=== PATIENT | female | born 1960 | race Caucasian/White ===

== ENCOUNTER 2021-01-14 06:29 | Emergency (ER) | payer OTHER, SELFPAY ==
--- NOTE | ~2021-01-14 | CT_ITS ---
EXAMINATION: CT abdomen pelvis wo con DATE: 01/14/2021 07:37 INDICATION: Right flank pain. Nausea. TECHNIQUE: Computed tomography (CT) of the abdomen and pelvis was performed without intravenous contr ast. Automated exposure control and iterative reconstruction technique were employed. The dose-length product was 184.29 mGy-cm. COMPARISON: CT abdomen and pelvis 07/04/2017 FINDINGS: The visualized portions of the lung bases demonstrate mild atelectasis. No pleural effusion . The heart size is normal. No pericardial effusion. There are cysts in the liver measuring up to 2.4 cm. There are changes of cholecystectomy. The pancreas, spleen, and adrenal glands are normal. There are cysts in the kidneys measuring up to 2.0 cm on the right. There is a 3 mm stone in right kidney. There is mild right hydronephrosis and hydroureter. There is a 3 mm stone at right ureterovesicular junction. There are two 2 mm stones in left kidney. There are no dilated loops of bowel. The appendix is not visualized. There are no pathologically enlarged lymph nodes. There is no free intraperitonea l fluid. There is mild thoracolumbar spondylosis. IMPRESSION: 1. 3 mm stone at right ureterovesicular junction with mild right hydronephrosis and hydroureter. 2. Small bilateral nonobstructing kidney stones. Reviewed, dictated and finalized at location A.
[2021-01-14 06:32] VITALS: BP 148/99; PULSE 100; RESP 18; TEMP 36.4; O2SAT 95
[2021-01-14] MEDS: KETOROLAC 30 MG/ML VIAL (*BKC) IV PUSH (06:44)
[2021-01-14] MEDS: SODIUM CHLORIDE 0.9% IV 1,000 ML 999 ML IV CONT (06:44)
[2021-01-14] MEDS: ONDANSETRON INJ 4 MG/2 ML VIAL IV PUSH (06:44)
[2021-01-14 06:58] LABS: Basophils Percent Auto 0.3 % (0.2-1.2); Eosinophils Absolute Auto 0.1 K/mm3 (0-0.3); Eosinophils Percent Auto 0.9 % (0-4.4); Hematocrit 46.7 % (37.0-47.0); Hemoglobin 15.2 g/dL (12.0-15.0); Immature Granulocyte Absolute 0.03 K/mm3 (0.00-0.031); Immature Granulocyte Percent A 0.4 % (0-0.5); Lymphocytes Absolute Auto 1.13 K/mm3 (0.9-3.2); Lymphocytes Percent Auto 14.2 % (18.3-44.2); Mean Corpuscular HGB Conc 32.5 g/dl (32-36); Mean Corpuscular Hemoglobin 30.6 pg (26-34); Mean Corpuscular Volume 94.2 fl (80-100); Mean Platelet Volume 10.5 fl (7.4-10.4); Monocytes Absolute Auto 0.7 K/mm3 (0.1-0.6); Monocytes Percent Auto 8.9 % (2.6-8.5); Neutrophils Percent Auto 75.3 % (45.5-73.1); Platelet Count Result 173 k/mm3 (150-375); Red Blood Count 4.96 M/mm3 (4.2-5.4); Red Cell Distribution Width 11.9 % (11.5-14.5)
[2021-01-14 07:08] LABS: Alanine Aminotransferase 27 U/L (4-35); Albumin Level 4.5 g/dL (3.5-5.1); Alkaline Phosphatase 74 U/L (38-126); Anion Gap 9 mmol/L (8-16); Aspartate Amino Transferase 40 U/L (14-36); Blood Urea Nitrogen 14 mg/dL (7-17); Calcium 9.2 mg/dL (8.4-10.2); Carbon Dioxide 26 mmol/L (22-30); Chloride 105 mmol/L (98-107); Estimated Glomerular Filt Rate > 60; Glucose 145 mg/dL (65-105); Potassium 3.8 mmol/L (3.4-5.0); Sodium 140 mmol/L (137-145)
[2021-01-14 07:13] LABS: Add Urine Microscopic? YES; Appearance Urine Clear (Clear); Bilirubin Urine Negative (Negative); Blood Urine 3+ (Negative); Color Urine Amber (Yellow); Glucose Urine UA Negative (Negative); Ketones Urine Trace mg/dL (Negative); Leukocyte Esterase Ur Negative LEU/UL (Negative); Mucus Urine Few /lpf; Nitrate Urine Negative (Negative); Protein Urine 1+ mg/dL (Negative); RBC Urine >75 /hpf (0-2); Squamous Epithelial Cell Urine Rare /hpf (Few); WBC Urine 0-3 /hpf
--- NOTE | 2021-01-14 07:25 | ED.FEMALEGU ---
HPI - Female Genitourinary General Chief complaint: Urogenital-Female Stated complaint: kidney stone Time Seen by Provider: 01/14/21 06:43 History of Present Illness HPI Narrative: Patient is a 60-year-old female who presents ER with concerns for kidney stone. Patient has history of kidney stones in the past. Began having some right flank pain 3 weeks ago. Then over the last few days she began having right lower quadrant pain. She now feels like she has to urinate frequently but cannot urinate. Reports yesterday she had diarrhea with nausea and vomiting. No alleviating factors at home. Related Data Allergies Allergy/AdvReac Type Severity Reaction Status Date / Time adhesive Allergy Unknown RASH, SKIN Verified 07/04/17 03:32 IRRITATION erythromycin base Allergy Unknown N/V Verified 07/04/17 03:32 STOMACH ULCERS Review of Systems Review of Systems: All systems reviewed & are unremarkable except as noted in HPI and below Constitutional: Constitutional: Denies chills Gastrointestinal: Gastrointestinal: Reports abdominal pain, Reports diarrhea, Reports nausea and Reports vomiting Genitourinary: Genitourinary: Reports nocturia, Denies dysuria and Reports flank pain PMFSH Past Medical History Medical History (Updated 01/14/21 @ 08:28 by Maco Layne MD) Anxiety Asthma Depression GERD (gastroesophageal reflux disease) Kidney stones Migraines Surgical History Surgical History (Updated 01/14/21 @ 07:33 by Maco Layne MD) History of appendectomy History of cholecystectomy Social History Social History (Updated 01/14/21 @ 07:33 by Maco Layne MD) Smoking status: Never smoker Exam Narrative: Exam Narrative: GENERAL: Well-appearing, well-nourished, and in no acute distress. HEAD: Normocephalic, atraumatic. CHEST: Clear to auscultation. No respiratory distress. HEART: Regular rate and rhythm. Normal peripheral pulses. ABDOMEN: Soft, nontender, nondistended. EXTREMITIES: Normal range of motion. No edema. NEURO: Alert and oriented x3. PSYCH: Normal mood and affect. Course Course Emergency Course: Patient improved. Informed results. Discharge home. Vital Signs Vital signs: Vital Signs Temperature 97.6 F 01/14/21 06:32 Pulse Rate 100 01/14/21 06:32 Respiratory Rate 18 01/14/21 06:32 Blood Pressure 148/99 H 01/14/21 06:32 Pulse Oximetry 95 01/14/21 06:32 Temperature 97.6 F 01/14/21 06:32 Pulse Rate 100 01/14/21 06:32 Respiratory Rate 18 01/14/21 06:32 Blood Pressure 148/99 H 01/14/21 06:32 Pulse Oximetry 95 01/14/21 06:32 MDM - Female Genitourinary Lab Data Result diagrams: 01/14/21 06:47 01/14/21 06:47 Labs: Lab Results 01/14/21 01/14/21 01/14/21 Range/Units 06:47 06:47 06:47 WBC 8.0 (4.5-10.0) K/mm3 RBC 4.96 (4.2-5.4) M/mm3 Hgb 15.2 H (12.0-15.0) g/dL Hct 46.7 (37.0-47.0) % MCV 94.2 (80-100) fl MCH 30.6 (26-34) pg MCHC 32.5 (32-36) g/dl RDW 11.9 (11.5-14.5) % Plt Count 173 (150-375) k/mm3 MPV 10.5 H (7.4-10.4) fl Immature Gran % (Auto) 0.4 (0-0.5) % Neut % (Auto) 75.3 H (45.5-73.1) % Lymph % (Auto) 14.2 L (18.3-44.2) % [place] % (Auto) 8.9 H (2.6-8.5) % Eos % (Auto) 0.9 (0-4.4) % Baso % (Auto) 0.3 (0.2-1.2) % Lymph # (Auto) 1.13 (0.9-3.2) K/mm3 [place] # (Auto) 0.7 H (0.1-0.6) K/mm3 Eos # (Auto) 0.1 (0-0.3) K/mm3 Baso # (Auto) 0.0 (0.0-0.1) K/mm3 Abs Immat Gran (auto) 0.03 (0.00-0.031) K/mm3 Absolute Neuts (auto) 6.0 (1.3-6.7) K/mm3 Absolute Nucleated RBC 0.0 (0.0-0.012) K/mm3 Nucleated RBC % 0.0 (0.0-0.2) % Sodium 140 (137-145) mmol/L Potassium 3.8 (3.4-5.0) mmol/L Chloride 105 (98-107) mmol/L Carbon Dioxide 26 (22-30) mmol/L Anion Gap 9 (8-16) mmol/L BUN 14 (7-17) mg/dL Creatinine 0.80 (0.7-1.0) mg/dL Estim Creat Clear Calc Not R
[2021-01-14 08:40] VITALS: BP 124/79; PULSE 84; RESP 16; O2SAT 96
== END 2021-01-14 08:41 | disposition home or self-care (01) ==
PROVIDERS: Emergency Medicine; Emergency Provider Emergency Medicine
DX: N20.1 Calculus of ureter (principal)
CPT/HCPCS: 36415; 74176; 80053; 81001; 81025; 85025; 96361; 96374; 96375; 99284; J1885; J2405; J7030

== ENCOUNTER 2022-09-11 09:55 | Observation (INO) | payer OTHER, SELFPAY ==
[2022-09-11] VITALS (20 sets, daily range): BP systolic 100–128; BP diastolic 58–99; PULSE 84–130; RESP 14–21; TEMP 36.6–38; O2SAT 93–100; BMI 24.2
--- NOTE | ~2022-09-11 | CT_ITS ---
Non-contrast CT scan of the Abdomen and Pelvis Clinical indication: Urolithiasis Technique: 2.5 mm axial scans were obtained through the abdomen and pelvis without intravenous or or al contrast. Dose reduction technique was used on this scan by utilizing automated exposure control a nd iterative reconstruction technique. The dose-length product (DLP) was 180.30 mGy-cm. Findings: Images through the lung bases reveal no abnormalities. Punctate bilateral nonobstructing renal stones are present. No ureteral stone seen at this time, hobbs kriss there is suggestion of mild fullness of the left ureter. Cholecystectomy clips are present. Multiple hepatic cysts are present. The spleen, pancreas, and adre nals appear normal. There is no aortic aneurysm. There is no evidence of bowel obstruction. Images through the pelvis were performed. There is no evidence of ascites or lymphadenopathy. Urinary bladder unremarkable. No adnexal mass seen. Impression: Findings suggestive of recently passed left ureteral stone. No ureteral stone seen currently. Small bilateral nonobstructing renal stones. Reviewed, dictated and finalized at location . FINISHER Impression: Findings suggestive of recently passed left ureteral stone. No ureteral stone s een currently. Small bilateral nonobstructing renal stones.
[2022-09-11 10:25] LABS: Basophils Percent Auto 0.2 % (0.2-1.2); Hematocrit 41.3 % (37.0-47.0); Hemoglobin 13.5 g/dL (12.0-15.0); Immature Granulocyte Absolute 0.04 K/mm3 (0.00-0.031); Immature Granulocyte Percent A 0.3 % (0-0.5); Lymphocytes Absolute Auto 0.71 K/mm3 (0.9-3.2); Lymphocytes Percent Auto 5.4 % (18.3-44.2); Mean Corpuscular HGB Conc 32.7 g/dl (32-36); Mean Corpuscular Hemoglobin 31.3 pg (26-34); Mean Corpuscular Volume 95.6 fl (80-100); Mean Platelet Volume 10.7 fl (7.4-10.4); Monocytes Absolute Auto 0.7 K/mm3 (0.1-0.6); Monocytes Percent Auto 5.2 % (2.6-8.5); Neutrophils Absolute Auto 11.6 K/mm3 (1.3-6.7); Neutrophils Percent Auto 88.9 % (45.5-73.1); Platelet Count Result 180 k/mm3 (150-375); Red Blood Count 4.32 M/mm3 (4.2-5.4); Red Cell Distribution Width 12.7 % (11.5-14.5); White Blood Count 13.1 K/mm3 (4.5-10.0)
[2022-09-11 10:31] LABS: Alanine Aminotransferase 24 U/L (6-35); Albumin Level 4.3 g/dL (3.5-5.1); Alkaline Phosphatase 83 U/L (38-126); Anion Gap 5 mmol/L (8-16); Aspartate Amino Transferase 26 U/L (14-36); Bilirubin,Total 0.9 mg/dL (0.2-1.3); Blood Urea Nitrogen 11 mg/dL (7-17); Calcium 9.6 mg/dL (8.4-10.2); Carbon Dioxide 30 mmol/L (22-30); Chloride 100 mmol/L (98-107); Estimated CRCL calculation 72 ml/min; Estimated Glomerular Filt Rate > 60; Glucose 158 mg/dL (65-110); Potassium 3.7 mmol/L (3.4-5.0); Sodium 135 mmol/L (137-145)
[2022-09-11] MEDS: ONDANSETRON INJ 4 MG/2 ML VIAL IV PUSH (10:31)
[2022-09-11] MEDS: fentaNYL CITRATE INJ (*CRX) 100 MCG/2 ML VIAL 50 MCG IV PUSH (10:31)
--- NOTE | 2022-09-11 11:04 | ED.GENADULT ---
HPI - General Adult General Chief complaint: Urogenital-Female Stated complaint: kidney stone? Time Seen by Provider: 09/11/22 10:13 History of Present Illness HPI narrative: This is a 62-year-old female who comes to the ED with chief complaint of left flank pain x3 days. She has had multiple kidney stones in the past and felt like she was having the same thing. She does state that she is starting to have right flank pain here in the ED as well. She had leftover tamsulosin and took that last night and feels that she may have passed her stone last night. Still complains of 9 out of 10 pain here in the ED. Reports that the pain on the left side does radiate into the groin. Pain on the right stays in the right flank. Denies chills but endorses subjective fevers and sweats. Denies nausea, vomiting. Related Data Home Medications Medication Instructions Recorded Confirmed diphenhydramine HCl 25 mg capsule 25 mg PO HS PRN Insomnia 09/11/22 09/11/22 (Benadryl) melatonin 10 mg disintegrating 10 mg PO HS PRN Insomnia 09/11/22 09/11/22 tablet Allergies Allergy/AdvReac Type Severity Reaction Status Date / Time adhesive Allergy Unknown RASH, SKIN Verified 07/04/17 03:32 IRRITATION erythromycin base Allergy Unknown N/V Verified 07/04/17 03:32 STOMACH ULCERS Review of Systems Review of Systems: CONSTITUTIONAL: Endorses subjective fever and sweats. Denies chills EYES: Denies visual changes, redness, or discharge. ENT: Denies rhinorrhea, congestion, sore throat, or otalgia. CARDIOVASCULAR: Denies chest pain, palpitations, or edema. RESPIRATORY: Denies cough or dyspnea. GASTROINTESTINAL: Endorses bilateral flank pain. Denies abdominal pain, nausea, vomiting, or diarrhea. GENITOURINARY: Endorses frequency. Endorses hematuria. Denies dysuria. SKIN: Denies rash or itching. MUSCULOSKELETAL: Denies back pain, joint pain, or myalgia. NEUROLOGIC: Denies headache, numbness, dizziness, or weakness. PSYCHIATRIC: Denies anxiety or depression. [facility] Past Medical History Medical History (Updated 09/11/22 @ 16:08 by Edgar Leavitt PA-C) Anxiety Asthma Depression GERD (gastroesophageal reflux disease) Kidney stones Migraines Surgical History Surgical History (Updated 01/14/21 @ 07:33 by Maco Layne MD) History of appendectomy History of cholecystectomy Social History Social History (Updated 01/14/21 @ 07:33 by Maco Layne MD) Smoking status: Never smoker Alcohol intake: former Substance use: never Lack of Transportation: No Lack of Food: Never True Current Housing: I Have Housing Concerned About Future Housing: No Difficulty Paying Gas/Electric Bills: No Difficulty Paying for Meds: No Currently Unemployed: No Education: Decline to Answer Difficulty w/ Childcare or Family Care: No Spiritual care concerns: No Exam Narrative: GENERAL: Well-appearing, well-nourished, and in no acute distress. Appears in pain. HEAD: Normocephalic, atraumatic. EYES: PERRLA and EOMI. ENT: Nares clear, no rhinorrhea or epistaxis. Mucous membranes moist. Oropharynx without tonsillar hypertrophy exudate or other lesions. NECK: Supple. No adenopathy or masses. CHEST: No respiratory distress. Clear to auscultation. No wheezes rales or rhonchi HEART: Regular rate and rhythm. No murmur heard. Normal peripheral pulses. ABDOMEN: Markedly tender in the left flank and moderately tender on the right flank. Abdomen is otherwise soft, nontender, nondistended, normal active bowel sounds. EXTREMITIES: Normal range of motion. No edema. SKIN: Skin is very warm and slightly diaphoretic. Otherwise intact, dry, no rash. No bruising. NEURO: Alert and oriented x3. No focal deficits. PSYCH: Normal mood and affect. Course Vital Signs Vital signs: Vital Signs Temperature 99.6 F 09/11/22 10:00 Pulse Rate 130 H 09/11/22 10:00 Respiratory Rate 20 09/11/22 10:00 Blood Pressure 114/99 H
[2022-09-11 11:18] LABS: Appearance Urine Turbid (Clear); Bacteria Urine 4+ /hpf; Bilirubin Urine Negative (Negative); Blood Urine 3+ (Negative); Color Urine Dark Yellow (Yellow); Glucose Urine UA Negative (Negative); Ketones Urine Trace mg/dL (Negative); Leukocyte Esterase Ur 3+ LEU/UL (Negative); Need Manual Microscopic Reviewed; Nitrate Urine Positive (Negative); Protein Urine 2+ mg/dL (Negative); Specific Grav Ur 1.019 (1.001-1.035); Squamous Epithelial Cell Urine Few /hpf (Few); pH Urine 5.5 (5.0-9.0)
[2022-09-11 11:21] LABS: Add Urine Microscopic? YES
[2022-09-11 11:27] LABS: WBC Urine >75 /hpf
[2022-09-11 11:52] LABS: Lipase 44 U/L (23-300)
[2022-09-11] MEDS: SODIUM CHLORIDE 0.9% IV 1,000 ML 999 ML IV CONT (12:46)
[2022-09-11 13:04] LABS: Lactic Acid Reflex 0.9 mmol/L (0.7-2.0)
--- NOTE | 2022-09-11 13:55 | ADMGEN ---
This patient, Rosa Maria Hughes, was admitted to [address] [place] [address] Room 330-02. Patient/family oriented to hospital policies and general routines including ID bracelet, bed and alarms, visiting hours, pain management, procedures, bathroom and other care routines, personal items, smoking policy, room service/diet, and visiting hours. Information on how to activate the Rapid Response Team has been discussed. Patient/Family are encouraged to report perceived risks to care and to ask questions if they do not understand what they are told or what they should do.
[2022-09-11] MEDS: SODIUM CHLORIDE 0.9% IV 1,000 ML 125 ML IV CONT (14:51)
--- NOTE | 2022-09-11 17:30 | PM.IMHP ---
H&P: HPI History of Present Illness Date/Time: 09/11/22 17:30 Chief Complaint: Flank pain. Narrative: This is a 62-year-old female with history of kidney stones who presented to the emergency department for evaluation of flank pain. Patient provides the following history. She reports left flank pain for the past 3 days similar to that which she has experienced with previous kidney stones. The pain is at times so severe that she has nausea and vomiting. Last evening she took tamsulosin which she had at home and she believes that she passed a stone sometime last night. Unfortunately she continues to have flank pain rated 9/10 which is colicky in nature and seems to radiate into the groin. She also endorses mild right-sided flank pain. She has had some sweats but no fever or chills. She continues to have some nausea but no vomiting. No diarrhea, dysuria, or hematuria. She was afebrile on arrival to the emergency department with stable vital signs. Pertinent labs include a WBC count of 13.1, sodium 135, BUN 11, creatinine 0.60, lactic acid 0.9, lipase 44, normal LFTs. Urine was nitrate positive and showed 3+ blood, 3+ leukocyte esterase, 11 to 20 RBC, greater than [address] scan showed punctate bilateral nonobstructing renal stones and findings suggestive of recently passed left ureteral stone. Due to ongoing pain and evidence of urinary tract infection, I was asked to admit the patient in this setting for IV antibiotics. Review of Systems Review of Systems: Twelve systems were reviewed and are negative except for as per HPI. [facility] Past Medical History Medical History (Updated 09/11/22 @ 22:50 by Petty Fofana PA-C) Anxiety Asthma Depression Essential tremor Gastroesophageal reflux disease Kidney stones Migraines Osteoporosis Surgical History Surgical History (Updated 09/11/22 @ 16:47 by Petty Fofana PA-C) History of appendectomy History of arthroscopy of right shoulder History of cholecystectomy History of dilation and curettage Family History Family History Mother Hypertension Diabetes mellitus Father Valvular insufficiency Social History Social History (Updated 09/11/22 @ 17:06 by Petty Fofana PA-C) Social History: Surrogate medical decision maker: Rhiannon Carter, daughter. Code status: Full code. Smoking status: Never smoker Alcohol intake: former Substance use: never Lack of Transportation: No Lack of Food: Never True Current Housing: I Have Housing Concerned About Future Housing: No Difficulty Paying Gas/Electric Bills: No Difficulty Paying for Meds: No Currently Unemployed: No Education: Decline to Answer Difficulty w/ Childcare or Family Care: No Spiritual care concerns: No Meds Home Medications and Allergies Home Medications Medication Instructions Recorded Confirmed Type diphenhydramine HCl 25 mg capsule 25 mg PO HS PRN Insomnia 09/11/22 09/11/22 History (Benadryl) melatonin 10 mg disintegrating 10 mg PO HS PRN Insomnia 09/11/22 09/11/22 History tablet Allergies Allergy/AdvReac Type Severity Reaction Status Date / Time adhesive Allergy Unknown RASH, SKIN Verified 07/04/17 03:32 IRRITATION erythromycin base Allergy Unknown N/V Verified 07/04/17 03:32 STOMACH ULCERS Vital Signs Vital Signs - 24 hr 09/11/22 10:00 09/11/22 10:30 09/11/22 10:31 Temperature 99.6 F Pulse Rate 130 H 116 H 116 H Respiratory Rate 20 16 17 Blood Pressure 114/99 H 100/79 Pulse Oximetry 98 98 98 Oxygen Delivery Room Air 09/11/22 10:45 09/11/22 11:11 09/11/22 11:26 Temperature Pulse Rate 103 H 100 94 Respiratory Rate 15 21 H 20 Blood Pressure Pulse Oximetry 93 95 95 Oxygen Delivery 09/11/22 11:34 09/11/22 11:47 09/11/22 12:08 Temperature Pulse Rate 93 93 88 Respiratory Rate 20 17 16 Blood Pressure Pulse Oximetry 97 98 97 Oxygen De
[2022-09-11] MEDS: HYDROcodone/acetaminophen (*CRX) 5-325 MG TABLET 1 TAB PO (20:49)
[2022-09-11] MEDS: ACETAMINOPHEN 325 MG TABLET 650 MG PO (22:04)
[2022-09-12 06:00] VITALS: BP 106/47; PULSE 79; RESP 16; TEMP 36.5; O2SAT 100
[2022-09-12 06:31] VITALS: TEMP 36.3
[2022-09-12 06:31] LABS: Anion Gap 3 mmol/L (8-16); Blood Urea Nitrogen 10 mg/dL (7-17); Calcium 8.5 mg/dL (8.4-10.2); Carbon Dioxide 27 mmol/L (22-30); Chloride 104 mmol/L (98-107); Estimated CRCL calculation 72 ml/min; Estimated Glomerular Filt Rate > 60; Glucose 115 mg/dL (65-110); Magnesium 1.8 mg/dL (1.6-2.3); Potassium 3.4 mmol/L (3.4-5.0); Sodium 134 mmol/L (137-145)
[2022-09-12 06:36] LABS: Hematocrit 36.8 % (37.0-47.0); Mean Corpuscular HGB Conc 32.6 g/dl (32-36); Mean Corpuscular Hemoglobin 30.8 pg (26-34); Mean Corpuscular Volume 94.6 fl (80-100); Mean Platelet Volume 10.4 fl (7.4-10.4); Platelet Count Result 152 k/mm3 (150-375); Red Blood Count 3.89 M/mm3 (4.2-5.4); Red Cell Distribution Width 12.9 % (11.5-14.5); White Blood Count 8.8 K/mm3 (4.5-10.0)
[2022-09-12] MEDS: ACETAMINOPHEN 325 MG TABLET 650 MG PO ×2 (08:24→21:09)
--- NOTE | 2022-09-12 11:14 | PM.IMPN ---
Progress Note: A&P Assessment and Plan (1) Pyelonephritis of left kidney: Code(s): N12 - Tubulo-interstitial nephritis, not specified as acute or chronic Status: Acute (2) Urinary tract infection: Code(s): N39.0 - Urinary tract infection, site not specified Status: Acute (3) Flank pain: Code(s): R10.9 - Unspecified abdominal pain Status: Acute (4) Bilateral renal stones: Code(s): N20.0 - Calculus of kidney Status: Acute Plan The patient presented to the emergency department for evaluation of bilateral flank pain similar to that which she has experienced with previous kidney stones. Labs, imaging, and all reports were personally reviewed. She thinks she may very well have passed a stone last night and CT of the abdomen and pelvis shows findings suggestive of recently passed left ureteral stone. Bilateral, nonobstructing renal stones were also noted but is unlikely that these are causing her current pain. More over she has left-sided CVA tenderness and she likely has pyelonephritis. If she continues to have pain, renal ultrasound or repeat CT may be prudent to rule out hydronephrosis. Urinalysis demonstrated 3+ blood, 3+ leukocyte esterase, 4+ bacteria, and was nitrate positive. She has since been started on ceftriaxone, pending urine culture. Blood cultures have been obtained and are pending. Vital signs were reviewed and they have remained stable. Her home medications will be reviewed and resumed as appropriate. Subjective Date/time seen: 09/12/22 11:14 No complaints Exam Narrative: General: Mildly ill, nontoxic-appearing female in the semi-Sales position in bed. Weight: 63.96 kg. BMI: 24.2. HEENT: PERRL, EOMI. Sclera anicteric. Tacky mucous membranes. Neck: Supple. Respiratory: Lungs are clear to auscultation bilaterally. Cardiovascular: Regular rate and rhythm with S1-S2. Gastrointestinal: Abdomen is soft and nondistended with positive bowel sounds. Positive left-sided CVA tenderness. She has some tenderness to palpation throughout the lower abdomen as well. No guarding or rebound tenderness. Skin: Warm and dry. No rash or lesions on limited exam. Extremities: No cyanosis, clubbing, or edema. Radial and pedal pulses intact. Neurological: Alert. Cranial nerves 2-12 are grossly intact. No gross focal deficits to casual conversation. Psychiatric: Pleasant and cooperative with normal mood and affect. Judgment and insight intact. Objective Data Vital Signs Vital Signs: Vital Signs - 24 hr 09/11/22 11:26 09/11/22 11:34 09/11/22 11:47 Temperature Pulse Rate 94 93 93 Respiratory Rate 20 20 17 Blood Pressure Pulse Oximetry 95 97 98 Oxygen Delivery 09/11/22 12:08 09/11/22 12:19 09/11/22 12:49 Temperature Pulse Rate 88 90 89 Respiratory Rate 16 14 14 Blood Pressure Pulse Oximetry 97 97 Oxygen Delivery 09/11/22 12:55 09/11/22 13:03 09/11/22 13:15 Temperature Pulse Rate 86 90 91 Respiratory Rate 18 17 19 Blood Pressure 121/67 Pulse Oximetry 100 99 Oxygen Delivery 09/11/22 13:45 09/11/22 13:30 09/11/22 15:18 Temperature 98.1 F 97.9 F Pulse Rate 93 84 86 Respiratory Rate 15 14 21 H Blood Pressure 124/77 112/59 L Pulse Oximetry 100 99 100 Oxygen Delivery 09/11/22 15:38 09/11/22 22:04 09/11/22 22:00 Temperature 99.8 F H 100.4 F H Pulse Rate 86 110 H Respiratory Rate 21 H 18 Blood Pressure 128/58 L Pulse Oximetry 100 95 Oxygen Delivery Room Air 09/11/22 20:00 09/12/22 06:31 09/12/22 06:00 Temperature 97.4 F L 97.7 F Pulse Rate 79 Respiratory Rate 16 Blood Pressure 106/47 L Pulse Oximetry 100 Oxygen Delivery Room Air 09/12/22 08:00 Temperature Pulse Rate Respiratory Rate Blood Pressure Pulse Oximetry Oxygen Delivery Room Air Intake/Output Intake/Output: Intake & Output 09/09/22 09/10/22 09/11/22 09/12/22 23:59 23:59 23:59 23:59 Intake Total 1170 375 [place]
[2022-09-12 14:00] VITALS: BP 110/58; PULSE 89; RESP 16; TEMP 36.9; O2SAT 97
--- NOTE | 2022-09-12 16:17 | PCCCNOTE ---
On 09/12/22, the student, [Rebecca Rock], provided care and completed [facility] documentation on this patient. I have reviewed the student's documentation and agree with the findings.
[2022-09-12] MEDS: diphenhydrAMINE HCl CAP 25 MG CAPSULE 50 MG PO (21:10)
[2022-09-12 22:00] VITALS: BP 115/57; PULSE 84; RESP 16; TEMP 36.3; O2SAT 100
[2022-09-13 06:00] VITALS: BP 111/57; PULSE 86; RESP 18; TEMP 36.4; O2SAT 99
[2022-09-13 06:29] LABS: Basophils Percent Auto 0.5 % (0.2-1.2); Eosinophils Absolute Auto 0.1 K/mm3 (0-0.3); Eosinophils Percent Auto 1.3 % (0-4.4); Hematocrit 37.9 % (37.0-47.0); Hemoglobin 12.2 g/dL (12.0-15.0); Immature Granulocyte Absolute 0.03 K/mm3 (0.00-0.031); Immature Granulocyte Percent A 0.5 % (0-0.5); Lymphocytes Absolute Auto 1.44 K/mm3 (0.9-3.2); Lymphocytes Percent Auto 23.5 % (18.3-44.2); Mean Corpuscular HGB Conc 32.2 g/dl (32-36); Mean Corpuscular Hemoglobin 31.4 pg (26-34); Mean Corpuscular Volume 97.4 fl (80-100); Mean Platelet Volume 10.7 fl (7.4-10.4); Monocytes Absolute Auto 0.7 K/mm3 (0.1-0.6); Monocytes Percent Auto 10.9 % (2.6-8.5); Neutrophils Absolute Auto 3.9 K/mm3 (1.3-6.7); Neutrophils Percent Auto 63.3 % (45.5-73.1); Platelet Count Result 154 k/mm3 (150-375); Red Blood Count 3.89 M/mm3 (4.2-5.4); Red Cell Distribution Width 13.1 % (11.5-14.5); White Blood Count 6.1 K/mm3 (4.5-10.0)
[2022-09-13 06:39] LABS: Anion Gap 2 mmol/L (8-16); Blood Urea Nitrogen 9 mg/dL (7-17); Calcium 8.4 mg/dL (8.4-10.2); Carbon Dioxide 28 mmol/L (22-30); Chloride 107 mmol/L (98-107); Estimated CRCL calculation 72 ml/min; Estimated Glomerular Filt Rate > 60; Glucose 91 mg/dL (65-110); Potassium 3.6 mmol/L (3.4-5.0); Sodium 137 mmol/L (137-145)
[2022-09-13 09:00] VITALS: PULSE 78; RESP 16; O2SAT 97
--- NOTE | 2022-09-13 10:42 | PM.DS ---
DS: Admitting Diagnosis Discharge Date September 13, 2022 Admitting Diagnosis Pyelonephritis, UTI DS: Discharge Diagnosis Discharge Diagnosis (1) Pyelonephritis of left kidney: Code(s): N12 - Tubulo-interstitial nephritis, not specified as acute or chronic Status: Acute (2) Urinary tract infection: Code(s): N39.0 - Urinary tract infection, site not specified Status: Acute (3) Flank pain: Code(s): R10.9 - Unspecified abdominal pain Status: Acute (4) Bilateral renal stones: Code(s): N20.0 - Calculus of kidney Status: Acute DS: Summary Hospital Course Hospital Course: Admitted for UTI pyelonephritis. Started on Rocephin. Patient did exceptionally well. She can be discharged on Omnicef Time Spent with Patient Time attestation: Total time spent providing and/or coordinating discharge services: Exam Narrative: General: Mildly ill, nontoxic-appearing female in the semi-Sales position in bed. Weight: 63.96 kg. BMI: 24.2. HEENT: PERRL, EOMI. Sclera anicteric. Tacky mucous membranes. Neck: Supple. Respiratory: Lungs are clear to auscultation bilaterally. Cardiovascular: Regular rate and rhythm with S1-S2. Gastrointestinal: Abdomen is soft and nondistended with positive bowel sounds. Positive left-sided CVA tenderness. She has some tenderness to palpation throughout the lower abdomen as well. No guarding or rebound tenderness. Skin: Warm and dry. No rash or lesions on limited exam. Extremities: No cyanosis, clubbing, or edema. Radial and pedal pulses intact. Neurological: Alert. Cranial nerves 2-12 are grossly intact. No gross focal deficits to casual conversation. Psychiatric: Pleasant and cooperative with normal mood and affect. Judgment and insight intact. DS: Data Data Completed and Pending Labs on day of discharge: Labs from last 24 hours 09/13/22 09/13/22 05:34 05:34 WBC 6.1 RBC 3.89 L Hgb 12.2 Hct 37.9 MCV 97.4 MCH 31.4 MCHC 32.2 RDW 13.1 Plt Count 154 MPV 10.7 H Immature Gran % (Auto) 0.5 Neut % (Auto) 63.3 Lymph % (Auto) 23.5 [place] % (Auto) 10.9 H Eos % (Auto) 1.3 Baso % (Auto) 0.5 Lymph # (Auto) 1.44 [place] # (Auto) 0.7 H Eos # (Auto) 0.1 Baso # (Auto) 0.0 Abs Immat Gran (auto) 0.03 Absolute Neuts (auto) 3.9 Absolute Nucleated RBC 0.0 Nucleated RBC % 0.0 Sodium 137 Potassium 3.6 Chloride 107 Carbon Dioxide 28 Anion Gap 2 L BUN 9 Creatinine 0.60 L Estim Creat Clear Calc 72 Estimated GFR > 60 Glucose 91 Calcium 8.4 Preliminary micro results at discharge 09/11/22 12:44 Blood Culture - Preliminary Blood 09/11/22 13:02 Blood Culture - Preliminary Blood Discharge Plan Discharge Attending physician on discharge: Shane Deleon Consulting providers: Edgar Leavitt Discharging Clinician: Shane Deleon Patient Disposition: Home, Self-Care Activity: no preference Diet: as tolerated Patient Instructions: Antibiotic Form Stand Alone Forms: General Discharge Information Follow-up/Referrals: Reina,Thi Jeff, [facility]- [Primary Care Provider] - Discharge Medications: New cefdinir 300 mg capsule 300 mg PO Q12H Qty: 14 0RF Continued diphenhydramine HCl [Benadryl] 25 mg Capsule 25 mg PO HS PRN (Reason: Insomnia) melatonin 10 mg Tablet,Disintegrating 10 mg PO HS PRN (Reason: Insomnia) Date of admission: 09/11/22 12:49 Primary Care Provider: Reina,Thi Jeff Admitting Provider: Shane Deleon Attending physician on admission: Shane Deleon Condition: Stable
== END 2022-09-13 14:41 | disposition home or self-care (01) ==
LOC: ANHED 10:35 → ANH3MEDSUR 13:14
PROVIDERS: Emergency Medicine; Physician Assistant; Admitting Provider Chiropractor; Emergency Provider Physician Assistant; PCP Nurse Practitioner Family; Visit Provider Chiropractor
DX: N12 Tubulo-interstitial nephritis, not specified as acute or chronic (principal); N39.0 Urinary tract infection, site not specified; B96.20 Unspecified Escherichia coli [E. coli] as the cause of diseases classified elsewhere; N20.0 Calculus of kidney; Z87.442 Personal history of urinary calculi; R00.0 Tachycardia, unspecified; G47.00 Insomnia, unspecified; G43.909 Migraine, unspecified, not intractable, without status migrainosus; F41.9 Anxiety disorder, unspecified; F32.A Depression, unspecified; Z90.49 Acquired absence of other specified parts of digestive tract; J45.909 Unspecified asthma, uncomplicated; Z79.899 Other long term (current) drug therapy
CPT/HCPCS: 36415; 74176; 80048; 80053; 81001; 83605; 83690; 83735; 85025; 85027; 87040; 87077; 87086; 87186; 96365; 96375; 99285; A9270; G0378; J0696; J2405; J3010; J7030

== ENCOUNTER 2022-10-14 12:44 | Outpatient (CLI) | payer OTHER, SELFPAY ==
--- NOTE | 2022-10-16 13:19 | WPDMETH ---
Methacholine Procedure Perform Procedure Performed Methacholine Challenge Methacholine Challenge Methacholine Challenge: DOS: 10/14/2022 REQUESTING: KAMI Johnson REASON FOR TESTING: Asthma METHACHOLINE CHALLENGE This test was conducted per ATS guidelines. The patient was exposed to sequentially increasing doses of methacholine in the usual manner. Level 0 - saline Level 1 - 1.81 mcg Level 2 - 7.26 mcg Level 3 - 29.03 mcg Level 4 - 116.0 mcg Level 5 - 464.4 mcg The test was stopped after the final dose without a significant drop in the FEV1 or FVC. The largest drop in the FEV1 was 4% on the 5th dose. A decrease of 20% in the FEV1 is a positive result, and the testing is terminated. Flows returned to normal after bronchodilator was administered. IMPRESSION: This is a negative methacholine challenge. The best use for a methacholine challenge is to rule out asthma. Clinical correlation is advised. Amita Garnica MD
== END 2022-10-14 12:45 | disposition home or self-care (01) ==
PROVIDERS: PCP Nurse Practitioner Family; Visit Provider Nurse Practitioner
DX: J45.909 Unspecified asthma, uncomplicated (principal)
CPT/HCPCS: 94070; J7674

== ENCOUNTER 2022-11-29 08:32 | Outpatient (CLI) | payer OTHER, SELFPAY ==
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
== END 2022-11-29 08:33 | disposition home or self-care (01) ==
PROVIDERS: PCP Nurse Practitioner Family; Visit Provider Nurse Practitioner
DX: Z78.0 Asymptomatic menopausal state (principal); M85.89 Other specified disorders of bone density and structure, multiple sites
CPT/HCPCS: 77080

== ENCOUNTER 2025-06-17 18:28 | Emergency (ER) | payer OTHER, SELFPAY ==
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
[2025-06-17 18:37] VITALS: BP 157/82; PULSE 79; RESP 18; TEMP 36.1; O2SAT 100
[2025-06-17] MEDS: SILVER SULFADIAZINE 1% CR 50 GM JAR (*BKC) 1 APPLIC TOPICAL (19:06)
[2025-06-17] MEDS: TETANUS,DIPHTHERIA,AC PERTUSSIS ADULT (0.5 ML) BOOSTRIX IM (19:11)
== END 2025-06-17 19:23 | disposition home or self-care (01) ==
PROVIDERS: Emergency Provider Nurse Practitioner
DX: T23.121A Burn of first degree of single right finger (nail) except thumb, initial encounter (principal); X10.1XXA Contact with hot food, initial encounter; Z23 Encounter for immunization; K21.9 Gastro-esophageal reflux disease without esophagitis; M81.0 Age-related osteoporosis without current pathological fracture; J45.909 Unspecified asthma, uncomplicated; F32.A Depression, unspecified
CPT/HCPCS: 16000; 90471; 90715; 99213; A9270; G0463